=== PATIENT | female | born 1965 | race Caucasian/White ===

== ENCOUNTER → 2017-07-10 | Outpatient (CLI) | payer OTHER ==
[2015-11-30 06:10] VITALS: BP 116/79
[~2017-07-10] MED LIST: CELE200C PO; FERR-26 PO; OXYC-323 PO; WARF1TAB74 PO
--- NOTE | 2017-07-10 13:22 | RAD ---
Examination: Right lower extremity venous Doppler History: History of right calf pain Comparison: None available Technique: Grayscale, color Doppler 2-D, spectral waveform analysis of the right lower extremity venous system were performed. Findings: The visualized common femoral vein, superficial femoral vein, popliteal vein demonstrate normal compression and augmentation of flow. The visualized calf veins are patent. Impression: No evidence of deep venous thrombosis in the visualized right lower extremity venous system.
== END | disposition home or self-care (01) ==
LOC: US 12:41
PROVIDERS: ATTEND Orthopaedic Surgery
DX: M79.661 Pain in right lower leg (principal); Z96.651 Presence of right artificial knee joint
CPT/HCPCS: 93971

== ENCOUNTER 2019-02-04 08:48 | Day surgery (SDC) | payer BC ==
[~2019-02-04] VITALS: Ht 162.6 cm; Wt 80.0 kg
[~2019-02-04 08:48] MED LIST changes: -FERR-26 PO; +FERR325T14 PO; +HYDROmorphone 2 MG/ML VIAL IV PRN; +IV RINGERS,LACTATED 1000ML 1,000 ML IV SCH; +MORPHINE SULFATE 2 MG/ML VIAL. IV PRN; +ONDANSETRON PF 4 MG/2 ML VIAL. IV PRN; -OXYC-323 PO; +OXYC1TAB15 PO; +PROCHLORPERAZINE 10 MG/2 ML VIAL. IV PRN; +SIMV10TA3 PO; +fentaNYL PF VIAL 100 MCG/2 ML VIAL IV PRN
[2019-02-04] MEDS ORDERED: BUPIVAC MPF-EPI 0.5%-1:200000 30 ML VIAL. ONE (10:06)
[2019-02-04] MEDS ORDERED: ROCURONIUM 50 MG/5 ML VIAL. ONE (10:30)
[2019-02-04] MEDS ORDERED: ONDANSETRON PF 4 MG/2 ML VIAL. ONE (10:30)
[2019-02-04] MEDS ORDERED: PROPOFOL 20 ML IV ONE (10:30)
[2019-02-04] MEDS ORDERED: FAMOTIDINE 20 MG/2 ML VIAL ONE (10:30)
[2019-02-04] MEDS ORDERED: LIDOCAINE 2% PF 5 ML VIAL. ONE (10:30)
[2019-02-04] MEDS ORDERED: fentaNYL PF VIAL 100 MCG/2 ML VIAL ONE ×3 (10:31→13:35)
[2019-02-04] MEDS ORDERED: MIDAZOLAM HCL/PF 2 MG/2 ML VIAL. ONE (10:31)
[2019-02-04] MEDS ORDERED: ceFAZolin 2GM PREMIX 2 GM/50 ML BAG IV ONE (11:00)
[2019-02-04] MEDS ORDERED: SCOPOLAMINE 1.5MG PATCH. TD ONE (11:43)
[2019-02-04] MEDS ORDERED: NEOSTIGMINE METHYLSULFATE 5 MG/5 ML SYRINGE. ONE (12:13)
[2019-02-04] MEDS ORDERED: GLYCOPYRROLATE 1 MG/5 ML VIAL. ONE (12:13)
[2019-02-04] MEDS ORDERED: diphenhydrAMINE 50 MG/ML VIAL ONE (12:54)
[2019-02-04] MEDS ORDERED: SEVOFLURANE 31 TO 60 MINUTES. IH ONE (12:54)
--- NOTE | 2019-02-04 12:56 | PDOC4 ---
Operative Note Operative Note Date: 02/04/2019 Preoperative diagnosis: Left inguinal hernia Postoperative diagnosis: Same Procedure: Robotic-assisted laparoscopic left inguinal hernia repair Surgeon: Momo Dictation: Patient is a 53-year-old female has had some left inguinal pain ultrasound showing small left inguinal hernia with incarcerated fat. The procedure of robotic-assisted laparoscopic left inguinal hernia repair was explained to the patient detail risk benefits were also discussed including bleeding infection injury to intra-abdominal contents possibly necessitating further or open operations alternatives to this procedure also discussed with the patient who seemed to understand kal verbal and written consent to have the procedure performed. Patient was taken to the operating room placed in supine position general anesthesia was initiated once patient was sleep and intubated she was placed in low lithotomy positioning and her abdomen was prepped and draped usual sterile fashion using ChloraPrep. An area just below the umbilicus was injected with quarter percent Marcaine with epinephrine incision was made 11 blade scalpel and a Veress needle was placed within the abdomen creating pneumoperitoneum once this was complete 12 mm port was placed and a da Courtney 12 mm camera is placed within the abdomen which was inspected was noted a small inguinal hernia on the left side otherwise normal. This point da Courtney 8 mm port was placed in the left lateral abdomen and one in the right lateral abdomen all under direct visualization the da Courtney robot was brought in and docked all port sites surgeon went to the robotic console using grasper and Endo Belinda scissors the peritoneum over the left groin was incised and a window propagated posteriorly reducing the incarcerated fat from the left inguinal hernia. A medium Bard 3-D max mesh for the left side was placed within the abdomen placed in the left groin and the peritoneum was closed over the mesh with a running 20V lock suture. Surgeon return to the operative field the da Courtney robot was undocked from all port sites the pneumoperitoneum was reduced all ports removed the fascial defect at the umbilicus was closed with [id number] Vicryl suture and the skin was approximated all port sites for septic and a Monocryl Mastisol Steri-Strips and island dressings were applied. Patient was awakened and extubated in the operating room taken to recovery in stable condition all sponge instrument needle counts listed as correct estimated blood loss 5 mL KATIE DOE MD Feb 04, 2019 12:56
--- NOTE | 2019-02-04 12:58 | DISCH ---
DISCHARGE INSTRUCTIONS Condition on Discharge Condition on Discharge: Stable Activity After Discharge Activity Instructions for Disc: Avoid exertion Other activity instructions: no lifting more than 20 pounds for 2 weeks Diet after Discharge Diet after Discharge: Regular Wound Incision Care Other wound/incision instructi: May shower in 24 hours Contacting the DRJason after DC Call your doctor for: If your condition worsens Follow-Up Follow up with: Dr. Doe in 2 weeks KATIE DOE MD Feb 04, 2019 12:58
[2019-02-04] MEDS ORDERED: OXYC1TAB15 PO (13:20)
[2019-02-04] MEDS ORDERED: oxyCODONE/APAP 5/325 1 TAB TABLET PO ONE ×2 (13:30)
[2019-02-04 15:15] VITALS: BP 120/70
== END 2019-02-04 15:15 | disposition home or self-care (01) ==
LOC: SURG 08:48
PROVIDERS: ATTEND Surgery
DX: K40.30 Unilateral inguinal hernia, with obstruction, without gangrene, not specified as recurrent (principal); E78.5 Hyperlipidemia, unspecified; E66.9 Obesity, unspecified; Z68.30 Body mass index [BMI] 30.0-30.9, adult; Z90.710 Acquired absence of both cervix and uterus; M19.90 Unspecified osteoarthritis, unspecified site; Z90.49 Acquired absence of other specified parts of digestive tract; Z98.890 Other specified postprocedural states; Z82.49 Family history of ischemic heart disease and other diseases of the circulatory system; Z83.79 Family history of other diseases of the digestive system; Z87.891 Personal history of nicotine dependence; Z79.899 Other long term (current) drug therapy
CPT/HCPCS: 49650; A7015; C1781; J0696; J0780; J1200; J2001; J2250; J2405; J2704; J2710; J3010; J3490; J7120; S2900

== ENCOUNTER → 2019-07-08 | Outpatient (CLI) | payer BC ==
[~2019-07-08] MED LIST changes: -HYDROmorphone 2 MG/ML VIAL IV PRN; -IV RINGERS,LACTATED 1000ML 1,000 ML IV SCH; -MORPHINE SULFATE 2 MG/ML VIAL. IV PRN; -ONDANSETRON PF 4 MG/2 ML VIAL. IV PRN; -PROCHLORPERAZINE 10 MG/2 ML VIAL. IV PRN; -fentaNYL PF VIAL 100 MCG/2 ML VIAL IV PRN
--- NOTE | 2019-07-08 13:15 | RAD ---
Left lower extremity venous duplex study Clinical History: Left lower extremity edema Technique: Using a combination of real time ultrasound imaging and color-flow and pulse Doppler imaging techniques, including spectral analysis, graded compression and augmentation, duplex evaluation of the deep venous system of the left lower extremity was performed. Multiple images were obtained. Findings: There is no sonographic evidence of deep venous thrombosis involving the visualized deep venous structures of the left lower extremity Impression: No evidence of deep venous thrombosis involving the left lower extremity Electronically signed by: Braydon Shearer MD (07/08/2019 1:13 PM) [id number]
== END | disposition home or self-care (01) ==
LOC: US 08:40
PROVIDERS: ATTEND Internal Medicine
DX: I89.0 Lymphedema, not elsewhere classified (principal)
CPT/HCPCS: 93971